=== PATIENT | female | born 1950 | race Caucasian/White ===

== ENCOUNTER 2018-02-28 14:33 | Emergency (ER) | payer MEDICAID ==
[~2018-02-28] VITALS: Ht 162.6 cm; Wt 105.9 kg
[2018-02-28 14:50] VITALS: BP_SYST 201; BP_SYST 227; BP_DIAS 92; BP_DIAS 93
--- NOTE | 2018-02-28 14:55 | NUR ---
PT. BIB DAUGHTER DUE TO INTERMITTENT FEVERS X 3 DAYS. L SHOULDER , L KNEE AND L HIP PAIN S/P FALL X 2 WEEKS AGO. 10/10 SHARP PAIN IN HEAD, L SHOULDER, L HIP AND L KNEE. BRUISING NOTED TO L THIGH / HIP AREA NO DEFORMITY NOTED. CAP REFILL LESS THAN 3 SEC. RR EVEN AND UNLABORED. PT. HAS FLUSHED APPEARANCE. PT. C/O ROSA " MY EYES FEEL LIKE THEY ARE BURNING". B/P 197/79 NOTED . ER MD COBIAN MADE AWARE. PT. ABLE TO SPEAK IN FULL AND COMPLETE SENTENCES.BILAT HAND STRENGTH 3+. ABD ROUND AND SOFT, PT. STATES " I HAVE NOT HAD A REGULAR BOWEL MOVEMENT FOR 10 DAYS. ER MADE AWARE. WILL CONTINUE TO MONITOR. SAFETY PRECAUTIONS IN PLACE.
[2018-02-28] MEDS ORDERED: KETOROLAC 30 MG/ML VIAL IVP ONE (15:15)
--- NOTE | 2018-02-28 15:23 | NUR ---
PATIENT TAKEN TO CT, VIA GURNEY, ACCOMPANIED BY CHUTE FEEDER.
[2018-02-28] MEDS ORDERED: ENALAPRILAT 2.5 MG/2 ML VIAL IVP ONE ×2 (16:10→16:50)
--- NOTE | 2018-02-28 16:11 | NUR ---
B/P 215/80 ER MD COBIAN MADE AWARE. PT. STATES " MY HEAD HURTS". WILL CONTINUE TO MONITOR.
--- NOTE | 2018-02-28 16:49 | NUR ---
B/P 201/83. ER MD COBIAN MADE AWARE.
[2018-02-28] MEDS ORDERED: MORPHINE SULFATE 4 MG/ML SYR IVP ONE (17:20)
--- NOTE | 2018-02-28 17:46 | NUR ---
PT. RESTING COMFORTABLY IN BED, HOB ELEVATED TO 25 DEGREES. RR EVEN AND UNLABORED. DAUGHTER AT BEDSIDE. WILL CONTINUE TO MONITOR.
--- NOTE | 2018-02-28 18:37 | NUR ---
PT. RESTING COMFORTABLY IN BED, PT STATES " MY PAIN IS GOING AWAY NOW". ER MD COBIAN MADE AWARE. WILL CONTINUE TO MONITOR.
--- NOTE | 2018-02-28 19:09 | NUR ---
ASSUMED CARE OF PT FROM RONNELL VELÁZQUEZ
[2018-02-28 19:52] VITALS: BP 185/65
--- NOTE | 2018-02-28 19:52 | NUR ---
Patient discharged with v/s stable. Written and verbal after care instructions given and explained. Patient alert, oriented and verbalized understanding of instructions. Ambulatory with steady gait. All questions addressed prior to discharge. ID band removed. Patient advised to follow up with PMD. Rx of MAG CITRATE, MOTRIN, CIPRO, COLACE, NORCO given. Patient educated on indication of medication including possible reaction and side effects. Opportunity to ask questions provided and answered.
== END 2018-02-28 19:52 | disposition home or self-care (01) ==
LOC: MED 14:33
DX: R51 Headache (principal); N39.0 Urinary tract infection, site not specified; M54.2 Cervicalgia; M25.512 Pain in left shoulder; M25.552 Pain in left hip; M25.562 Pain in left knee; K59.00 Constipation, unspecified; E11.9 Type 2 diabetes mellitus without complications; I10 Essential (primary) hypertension; Z90.49 Acquired absence of other specified parts of digestive tract; Z98.890 Other specified postprocedural states; W19.XXXA Unspecified fall, initial encounter; Y93.89 Activity, other specified; Y92.89 Other specified places as the place of occurrence of the external cause; Y99.8 Other external cause status
CPT/HCPCS: 73030; 73502; 73562; 74022; 81002; 82948; 96374; 96375; 96376; 99283; J1885; J2270; J3490